=== PATIENT | male | born 1970 | race Caucasian/White ===

== ENCOUNTER 2018-10-27 18:42 | Inpatient (IN) ==
[2018-10-27] MEDS ORDERED: LACTATED RINGERS 1,000 ML IV ONE ×2 (18:51→21:59)
[2018-10-27] MEDS ORDERED: ACETAMINOPHEN 325 MG TABLET PO ONE ×3 (18:52→23:16)
--- NOTE | 2018-10-27 19:07 | Emergency Department Note ---
Fever HPI - General Chief Complaint: Fever Stated Complaint: Chills, Fever Time Seen by Provider: 10/27/18 18:59 Source: patient Mode of arrival: ambulatory Limitations: no limitations - History of Present Illness HPI Narrative: Patient states of the last 24 hours of been developing fever and chills achy all over, mild nasal congestion. Having some very mild cough but no shortness of breath. Nausea with several episodes of vomiting over the last 24 hours. He states he always has some diarrhea there is been no blood no hematemesis. Also complaining of frequency and some dysuria in the urine. Denies any CVA tenderness. He does have rheumatoid arthritis is on prednisone 5 mg daily but has not followed up with Dr. [place] for the past year as he states he has been incarcerated for the last year. Does state he has [facility] the last 6 monthsTemperatures 101.5 the pulse is 137 respiratory rate 26 blood pressure 137/95 pulse ox 96% - Related Data Home Medications Medication Instructions Recorded Confirmed Lisinopril [Zestril] 10 mg PO DAILY 09/30/17 11/12/17 Previous Rx's Medication Instructions Recorded oxybutynin chloride 5 mg tablet 5 mg PO TID PRN #60 tab 10/16/17 tamsulosin 0.4 mg capsule 0.4 mg PO QDAY #30 cap 10/16/17 meloxicam 7.5 mg tablet 7.5 mg PO BID #60 tab 10/17/17 prednisone 5 mg tablet See Rx Instructions PO QDAY #60 tab 10/24/17 sildenafil 100 mg tablet 100 mg PO ONCE #7 tab 11/12/17 folic acid 1 mg tablet 1 mg PO QDAY #30 tab 11/28/17 methotrexate sodium 2.5 mg tablet 20 mg PO QWEEK #32 tab 11/28/17 Allergies Allergy/AdvReac Type Severity Reaction Status Date / Time morphine Allergy Unknown Agitated Verified 11/12/17 08:41 Review of Systems All systems ED: reviewed and negative except as stated. Constitutional: Reports: fever, chills Eyes: Denies: eye pain ENT ED: Denies: ear pain, throat pain Cardiovascular: Denies: chest pain, palpitations Respiratory: Reports: cough (Mild). Denies: shortness of breath, wheezes, phlegm Gastrointestinal: Reports: nausea, vomiting. Denies: abdominal pain, diarrhea, constipation, hematochezia, melena Genitourinary: Reports: dysuria, frequency, urgency. Denies: hematuria, incontinence, discharge, genital lesions Musculoskeletal: Denies: back pain, joint swelling Integumentary: Denies: rash Neurological: Denies: headache, weakness Psychiatric: Denies: anxiety, depression Endocrine: Denies: fatigue, heat or cold intolerance Hematological/Lymphatic: Denies: easy bleeding Fever PMH - Past Medical History [facility] Narrative: All Active Problems (Last Reviewed 11/12/17 @ 08:42 by Kaitlin Mendez RN) Hyperuricemia (Acute) Encounter for long-term (current) use of high-risk medication (Acute) HLA B27 (HLA B27 positive) (Chronic) Inflammatory arthropathy (Acute) Right flank pain (Chronic) Left hip pain (Chronic) Hand pain (Chronic) Constipation (Chronic) Urinary hesitancy (Chronic) Intertrigo (Chronic) Erectile dysfunction (Chronic) Lumbago (Chronic) Elevated blood pressure reading (Chronic) Benign positional vertigo (Chronic) Polyarthralgia (Chronic) Osteochondroma (Chronic) Calcaneal spur (Chronic) Tendinitis (Chronic) Right ankle sprain (Chronic) Proteinuria (Chronic) High risk medication use (Chronic) Gross hematuria (Chronic) Uric acid nephrolithiasis (Chronic) Elevated uric acid in blood (Chronic) Left hand fracture (Chronic) Knee fracture, left (Chronic) Exercise-induced asthma (Chronic) Eczema (Chronic) Diverticulitis of large intestine (Chronic) Urolithiasis (Chronic) Blood in urine (Chronic) Right lower quadrant pain (Chronic) Reactive arthritis (Chronic) Inflammatory polyarthropathy (Chronic) Arthralgia (Chronic) Hypertension (Chronic) Hyperlipidemia (Chronic) Vitamin D deficiency (Chronic) Anxiety (Chronic) Depression (Chronic) Asthma (Chronic) Substance use disorder (Chronic) Gout (Chronic) Diverticulitis (Chronic) Staghorn renal calculus (Chronic) Calculus of kidney (Acute) Past Surgical History (Last Reviewed 11/12/17 @ 08:42 by Kaitlin Mendez RN) History of cholecystectomy (Chronic ~2002) History of tonsillectomy and adenoidectomy (Chronic) Family History (Last Reviewed 11/12/17 @ 08:42 by Kaitlin Mendez RN) Sister Arthritis Rheumatoid arthritis Family/Other Diabetes Father Arthritis Lung cancer metastatic to brain CVD (cardiovascular disease) Liver cancer Other Heart attack Hypertension Kidney stone Medical history: Reports: kidney stones - Social History smoking status: Never smoker Alcohol use: Reports: Heavy (Heavy in past but states he has not drank in the past 2 years) Drug use: Reports: unknown (Records indicate substance abuse in the past) Physical Exam Limitations: no limitations Head: atraumatic, normocephalic Eye: Present: normal appearance, PERRL ENT: normal exam, normal oropharynx, mucous membranes moist Neck: Present: normal inspection, full ROM Chest: Present: normal inspection, symmetric chest wall rise. Absent: tenderness Respiratory: Present: normal lung sounds bilaterally. Absent: respiratory distress, rales/crackles Cardiovascular: Present: regular rate, normal rhythm Abdominal: Present: soft, normal bowel sounds. Absent: distention, tenderness, guarding, rebound, rigidity : Present: normal inspection. Absent: testicular tenderness, urethral discharge Extremities: Present: normal inspection, full ROM. Absent: tenderness Back: Present: normal inspection, full ROM. Absent: tenderness Neurological: Present: alert, oriented X3, CN II-XII intact, normal gait. Absent: motor sensory deficit Psychiatric: Present: normal affect, normal mood. Absent: depressed, agitated, anxious Course Vital Signs Temperature 101.5 F H 10/27/18 18:42 Pulse Rate 137 H 10/27/18 18:42 Respiratory Rate 26 H 10/27/18 18:42 Blood Pressure 137/95 10/27/18 18:42 Pulse Oximetry (%) 96 10/27/18 18:42 Temperature 102.4 F H 10/27/18 21:24 Pulse Rate 125 H 10/27/18 21:24 Respiratory Rate 26 H 10/27/18 18:42 Blood Pressure 105/79 10/27/18 21:16 Pulse Oximetry (%) 95 10/27/18 21:24 Fever - MDM Narrative Medical decision making narrative: #30 White counts elevated at 20,576 segs 1 band leukocytes and 16 monocytes lactic is 1.5 sodium is 132 the potassium 4.0 the BUN is 13 creatinine 1.0 the urine dip test shows moderate leukocytes and RBCs awaiting for the microscopic blood cultures have been drawn started on Levaquin initially IVWBC is elevated at 20,500 with 76 segs 1 band and 7 lymphocytes 16 monocytes lactic acid is 1.5 can panel shows a sodium 132 potassium 4.0 glucose is 124 the BUN is 13 creatinine 1.0 test shows 134 RBCs greater than 182 WBCs culture and sensitivity has been ordered. Dr. Negrete contacted patient to be admitted urinary sepsis SIRS criteria is met - Lab Data Result diagrams: 10/27/18 19:03 10/27/18 19:03 Lab Results 10/27/18 10/27/18 10/27/18 Range/Units 19:03 19:03 19:03 WBC 20.5 H (4.5-11.0) K/mcL RBC 5.13 (4.50-5.90) M/mcL Hgb 13.6 (13.5-16.5) g/dL Hct 41.4 (41.0-55.0) % MCV 80.8 (80.0-100.0) fL MCH 26.6 (26.0-34.0) pg MCHC 32.9 (31.0-36.0) g/dL RDW 14.4 (11.5-14.5) % Plt Count 261 (140-440) K/mcL MPV 8.1 (7.4-10.4) fL Total Counted 100 Seg Neutrophils % 76 (38-78) % Band Neutrophils % 1 (0-10) % Lymphocytes % 7 L (15-49) % Monocytes % (Manual) 16 H (1-12) % Platelet Estimate Normal (NORMAL) RBC Morphology Normal (NORMAL) VBG Lactic Acid 1.5 (0.5-2.0) mmol/L Sodium 132 L (133-145) mmol/L Potassium 4.0 (3.3-5.1) mmol/L Chloride 93 L (96-108) mmol/L Carbon Dioxide 22 (22-30) mmol/L Anion Gap 17.0 H (8-16) BUN 13 (6-20) mg/dl Creatinine 1.0 (0.7-1.2) mg/dl GFR Calculation 90 Glucose 124 H (70-105) mg/dL Calcium 9.0 (8.6-10.4) mg/dl Total Bilirubin 2.0 H (0.0-1.0) mg/dL AST 12 (0-37) U/l ALT 11 (0-40) U/l Alkaline Phosphatase 93 (39-117) U/L Total Protein 8.0 (5.9-8.4) gm/dL Albumin 3.8 (3.2-5.2) gm/dL Globulin 4.2 H (2.2-3.7) gm/dL Albumin/Globulin Ratio 0.9 L (1.0-2.3) Urine Color Urine Appearance Urine pH (5.0-9.0) Ur Specific [place] (1.000-1.035) Urine Protein (NEG) mg/dL Urine Glucose (UA) (NEG) mg/dL Urine Ketones (NEG) mg/dL Urine Occult Blood (<0.03) mg/dL Urine Nitrate (NEG) Urine Bilirubin (NEG) mg/dL Urine Urobilinogen (NEG) mg/dL Ur Leukocyte Esterase (NEG) /uL Urine RBC (0-1) /hpf Urine WBC (0-4) /hpf Ur Squamous Epith Cells (0-4) /hpf Urine Bacteria (0) /hpf Urine Mucus (0) /hpf Ur Culture Indicated? 10/27/18 Range/Units 20:25 WBC (4.5-11.0) K/mcL RBC (4.50-5.90) M/mcL Hgb (13.5-16.5) g/dL Hct (41.0-55.0) % MCV (80.0-100.0) fL MCH (26.0-34.0) pg MCHC (31.0-36.0) g/dL RDW (11.5-14.5) % Plt Count (140-440) K/mcL MPV (7.4-10.4) fL Total Counted Seg Neutrophils % (38-78) % Band Neutrophils % (0-10) % Lymphocytes % (15-49) % Monocytes % (Manual) (1-12) % Platelet Estimate (NORMAL) RBC Morphology (NORMAL) VBG Lactic Acid (0.5-2.0) mmol/L Sodium (133-145) mmol/L Potassium (3.3-5.1) mmol/L Chloride (96-108) mmol/L Carbon Dioxide (22-30) mmol/L Anion Gap (8-16) BUN (6-20) mg/dl Creatinine (0.7-1.2) mg/dl GFR Calculation Glucose (70-105) mg/dL Calcium (8.6-10.4) mg/dl Total Bilirubin (0.0-1.0) mg/dL AST (0-37) U/l ALT (0-40) U/l Alkaline Phosphatase (39-117) U/L Total Protein (5.9-8.4) gm/dL Albumin (3.2-5.2) gm/dL Globulin (2.2-3.7) gm/dL Albumin/Globulin Ratio (1.0-2.3) Urine Color Anna Urine Appearance Cloudy Urine pH 5.0 (5.0-9.0) Ur Specific [place] 1.021 (1.000-1.035) Urine Protein 100 A (NEG) mg/dL Urine Glucose (UA) Negative (NEG) mg/dL Urine Ketones 5/tr A (NEG) mg/dL Urine Occult Blood >=1.0 A (<0.03) mg/dL Urine Nitrate Pos A (NEG) Urine Bilirubin Neg (NEG) mg/dL Urine Urobilinogen Neg (NEG) mg/dL Ur Leukocyte Esterase 250 A (NEG) /uL Urine RBC 134 H (0-1) /hpf Urine WBC > 182 H (0-4) /hpf Ur Squamous Epith Cells 0 (0-4) /hpf Urine Bacteria 0 (0) /hpf Urine Mucus Many A (0) /hpf Ur Culture Indicated? Yes Disposition Pt seen by [employer] [facility]/PA only: No Clinical Impression: Sepsis due to urinary tract infection Disposition: Xfer As Inpt ([facility]) Condition: Fair Referrals: Abe Britt ARNP [Primary Care Provider] -
--- NOTE | 2018-10-27 19:28 | XRay Report ---
INDICATION: Fever. Chills. TECHNIQUE: PA and lateral upright chest x-ray COMPARISON: 11/26/2017 and 07/11/2010 FINDINGS:Lungs are negative. No parenchymal infiltrate or mass. Heart size and vascularity are normal. Katarina and mediastinum are negative. No pleural fluid. No significant interval change IMPRESSION: Negative PA and lateral chest x-ray Interpreted and Authenticated by: Pedro Oropeza 10/27/18
[2018-10-27] MEDS ORDERED: ONDANSETRON 4 MG/2 ML VIAL IV ONE (19:36)
[2018-10-27 19:49] LABS: Mean Cell Volume 80.8 fL (80.0-100.0); Mean Corpuscular HGB Conc 32.9 g/dL (31.0-36.0); Platelet Count 261 K/mcL (140-440); RBC 5.13 M/mcL (4.50-5.90); Red Cell Distribution Width 14.4 % (11.5-14.5)
[2018-10-27 20:06] LABS: Band Neutrophils % 1 % (0-10); Lymphocytes % 7 % (15-49); Monocytes % (Manual) 16 % (1-12); Platelet Estimate NORMAL (NORMAL); RBC Morphology NORMAL (NORMAL); Segmented Neutrophils % 76 % (38-78)
[2018-10-27 20:10] LABS: ALT/SGPT 11 U/l (0-40); Albumin 3.8 gm/dL (3.2-5.2); Albumin/Globulin Ratio 0.9 (1.0-2.3); Alkaline Phosphatase 93 U/L (39-117); Blood Urea Nitrogen 13 mg/dl (6-20)
[2018-10-27] MEDS ORDERED: IBUPROFEN 200 MG TABLET PO ONE (20:25)
[2018-10-27] MEDS ORDERED: LEVOFLOXACIN 500 MG/100 ML BAG IV ONE (20:33)
[2018-10-27 21:19] LABS: Appearance,Urine CLOUDY; Bacteria,Urine 0 /hpf (0); Bilirubin,Urine NEG (NEG); Color,Urine AMBER; Glucose,Urine (UA) NEGATIVE (NEG); Leukocyte Esterase,Urine 250 /uL (NEG); Mucus,Urine MANY /hpf (0); Protein,Urine 100 mg/dL (NEG); Specific Gravity,Urine 1.021 (1.000-1.035); Urine Blood >=1.0 mg/dL (<0.03); Urine RBC 134 /hpf (0-1); Urine Squamous Epithelial Cell 0 /hpf (0-4); Urine WBC > 182 /hpf (0-4); Urobilinogen,Urine NEG (NEG)
[2018-10-27] MEDS ORDERED: LACTATED RINGERS 2,000 ML IV ONE (21:43)
[2018-10-27] MEDS ORDERED: methylPREDNISolone SOD SUCC 40 MG/ML VIAL IV ONE ×2 (22:04→22:22)
--- NOTE | 2018-10-27 22:12 | Internal Med History&Physical ---
Medical - H&P: HPI Patient information: Note initiated : 10/27/18 at 10:10 pm Service Date, if different from initiated Date: [] Patient: Fito Gunn 48 y/o M admitted on for Chills, Fever. Chief Complaint: [] History of present illness: Mr. Gunn is a 48 year old M with history of rheumatoid arthritis, hypertension, on chronic prednisone therapy 20 mg, presents to the emergency room today for evaluation of fever chills for 1 day. The patient's notes that he started having nausea and some vomiting since yester day, he had subjective sensation of fever and chills some runny nose. He was feeling tired week and significant fatigue. He then noticed that he has been having increased burning when he tries to pee. The patient's condition continued to decline and therefore he presented to the emergency room for further evaluation. He had some headache, some runny nose but no changes in vision no changes in h earing no difficulty in swallowing, no chest pain no shortness of breath has cough mild, had some nausea and vomiting, burning urination no diarrhea constipation or blood in stools reported, has joint pain secondary to arthritis but no new joint pains or back pain reported. No skin rashes no behavioral issues reported. The patient takes prednisone 20 mg for more than 6 months now has been incarc erated therefore was not able to follow-up with his party host. In the emergency room the patient was febrile temperature 102.4, heart rate 125 blood pressure 105/79 saturating 95% on room air, Patient's labs showed leukocytosis WBC 20.5, hemoglobin 13.6 platelets 261 lactic acid 1.5, creatinine 1.0 glucose 124. UA suggestive of urinary tract infection. Patient does have history of renal stones in the past but denies any flank pains. Patient was given antibiotics fluids appropriate cultures drawn and admitted to the hospital for further management All systems: reviewed and no additional remarkable complaints except as stated (As per HPI rest negative) Medical - H&P: PMH Medical history: Medical History (Last Reviewed 11/12/17 @ 08:42 by Kaitlin Mendez RN) Hyperuricemia (Acute) Encounter for long-term (current) use of high-risk medication (Acute) HLA B27 (HLA B27 positive) (Chronic) Spondyloarthropathy (Suspected) Inflammatory arthropathy (Acute) Right flank pain (Chronic) Left hip pain (Chronic) Hand pain (Chronic) Constipation (Chronic) Urinary hesitancy (Chronic) Intertrigo (Chronic) Erectile dysfunction (Chronic) Lumbago (Chronic) Elevated blood pressure reading (Chronic) Benign positional vertigo (Chronic) Polyarthralgia (Chronic) Osteochondroma (Chronic) Calcaneal spur (Chronic) Tendinitis (Chronic) Right ankle sprain (Chronic) Proteinuria (Chronic) High risk medication use (Chronic) Gross hematuria (Chronic) Uric acid nephrolithiasis (Chronic) Elevated uric acid in blood (Chronic) Left hand fracture (Chronic) Knee fracture, left (Chronic) Exercise-induced asthma (Chronic) Eczema (Chronic) Diverticulitis of large intestine (Chronic) Urolithiasis (Chronic) Blood in urine (Chronic) Right lower quadrant pain (Chronic) Reactive arthritis (Chronic) Inflammatory polyarthropathy (Chronic) Arthralgia (Chronic) Hypertension (Chronic) Hyperlipidemia (Chronic) Vitamin D deficiency (Chronic) Anxiety (Chronic) Depression (Chronic) Asthma (Chronic) Substance use disorder (Chronic) Gout (Chronic) Diverticulitis (Chronic) Staghorn renal calculus (Chronic) Calculus of kidney (Acute) Surgical history: Past Surgical History (Last Reviewed 11/12/17 @ 08:42 by Kaitlin Mendez RN) History of cholecystectomy (Chronic ~2002) History of tonsillectomy and adenoidectomy (Chronic) Pertinent family history: Family History (Last Reviewed 11/12/17 @ 08:42 by Kaitlin Mendez RN) Sister Arthritis Rheumatoid arthritis Family/Other Diabetes Father Arthritis Lung cancer metastatic to brain CVD (cardiovascular disease) Liver cancer Other Heart attack Hypertension Kidney stone Medical - H&P: Meds Home Medications Medication Instructions Recorded Confirmed Type Lisinopril [Zestril] 10 mg PO DAILY 09/30/17 11/12/17 History oxybutynin chloride 5 mg tablet 5 mg PO TID PRN #60 tab 10/16/17 11/12/17 Rx tamsulosin 0.4 mg capsule 0.4 mg PO QDAY #30 cap 10/16/17 11/12/17 Rx meloxicam 7.5 mg tablet 7.5 mg PO BID #60 tab 10/17/17 11/12/17 Rx prednisone 5 mg tablet See Rx Instructions PO QDAY #60 tab 03/29/18 04/17/18 Rx sildenafil 100 mg tablet 100 mg PO ONCE #7 tab 11/12/17 11/12/17 Rx folic acid 1 mg tablet 1 mg PO QDAY #30 tab 11/28/17 Rx methotrexate sodium 2.5 mg tablet 20 mg PO QWEEK #32 tab 11/28/17 Rx Allergies Allergy/AdvReac Type Severity Reaction Status Date / Time morphine Allergy Unknown Agitated Verified 11/12/17 08:41 Medical - H&P: Exam - Constitutional Vitals: Temp Pulse Resp BP Pulse Ox 102.4 F H 119 H 26 H 109/83 98 10/27/18 21:24 10/27/18 21:46 10/27/18 18:42 10/27/18 21:46 10/27/18 21:46 Exam: GENERAL: The patient is a well-developed, well-nourished in no apparent distress. Is alert and oriented x3. Obese individual VITAL SIGNS: Reviewed and as noted elsewhere. HEENT: Head is normocephalic and atraumatic. Extraocular muscles are intact. Pupils are equal, round, and reactive to light. Nares appeared normal. Mouth appears any without lesions. Mucous membranes are moist. NECK: Normal to inspection, Supple, No lymphadenopathy or thyromegaly. LUNGS: Air entry equal on both sides, no wheezing, crackles or rhonchi noted. No accessory muscles of respiration HEART: Regular tachycardic rate and rhythm normal, S1 and S2 heard, no Gallop, S3 or Rub Noted, No Gross murmur heard. ABDOMEN: Soft, nontender, and nondistended. Positive bowel sounds. No hepatosplenomegaly was noted. EXTREMITIES: No cyanosis, clubbing, rash, lesions or edema. NEUROLOGIC: Cranial nerves II through XII are grossly intact. Motor and Sensory System Grossly Intact PSYCHIATRIC: Normal affect, Normal Mood. Appropriate Behavior. SKIN: No ulceration or wounds noted, No jaundice, No rash noted. Medical - H&P: Reslt - Labs CBC & Chem 7: 10/27/18 19:03 10/27/18 19:03 Labs: Short CBC 10/27/18 Range/Units 19:03 WBC 20.5 H (4.5-11.0) K/mcL Hgb 13.6 (13.5-16.5) g/dL Hct 41.4 (41.0-55.0) % Plt Count 261 (140-440) K/mcL BMP 10/27/18 19:03 Sodium 132 L Potassium 4.0 Chloride 93 L Carbon Dioxide 22 BUN 13 Creatinine 1.0 Glucose 124 H Calcium 9.0 Liver Function 10/27/18 Range/Units 19:03 Total Bilirubin 2.0 H (0.0-1.0) mg/dL AST 12 (0-37) U/l ALT 11 (0-40) U/l Alkaline Phosphatase 93 (39-117) U/L Albumin 3.8 (3.2-5.2) gm/dL Urine 10/27/18 Range/Units 20:25 Urine Color Anna Urine Appearance Cloudy Urine pH 5.0 (5.0-9.0) Ur Specific [place] 1.021 (1.000-1.035) Urine Protein 100 A (NEG) mg/dL Urine Glucose (UA) Negative (NEG) mg/dL Medical - H&P: A/P - Narrative A/P Narrative: A/P Urinary tract infection Acute sepsis Rheumatoid arthritis Chr prednisone use Obesity HTN Plan Admit to med surg IV fluids, total 4 L planned, IV rocephin 2gms q24, Get CT abdomen and pelvis, given h/o renal stones, and severe UTI, Increase dose of steroids to 40mg for now, double usual dose, to avoid Secondary AI Hold bp medications for now DVT hep sq Full code. Social History - Social History marital status: occupational status: unemployed - Exercise physical activity: none - Tobacco smoking status: Never smoker - Alcohol alcohol intake frequency: a few times a month - Substance use substance use type: marijuana, other
[2018-10-27] MEDS ORDERED: ONDANSETRON 4 MG/2 ML VIAL IV PRN (23:00)
[2018-10-27] MEDS ORDERED: ONDANSETRON 4 MG/2 ML VIAL ONE (23:16)
[2018-10-27] MEDS: 0.9 % SODIUM CHLORIDE 10 ML SYRINGE IV SCH ×2 (23:18→23:30)
[2018-10-27] MEDS ORDERED: ZOLPIDEM 5 MG TABLET ONE (23:21)
[2018-10-27] MEDS ORDERED: cefTRIAXone 1 GM VIAL ONE (23:21)
[2018-10-27] MEDS: cefTRIAXone 2 GM in DEXTROSE 5% IN WATER 50 ML IV SCH (23:42)
[2018-10-28] MEDS: LACTATED RINGERS 1,000 ML IV SCH ×3 (04:46→18:34)
[2018-10-28] MEDS: 0.9 % SODIUM CHLORIDE 10 ML SYRINGE IV SCH ×3 (05:31→20:56)
[2018-10-28 06:16] LABS: Basophils # (Auto) 0 K/mcL (0.0-0.3); Basophils % (Auto) 0 % (0.0-2.0); Eosinophils # (Auto) 0 K/mcL (0.0-0.7); Eosinophils % (Auto) 0 % (0.0-7.0); Granulocytes % (Auto) 90.9 % (38.0-78.0); Lymphocytes # (Auto) 0.5 K/mcL (1.5-4.8); Lymphocytes % (Auto) 3.2 % (15.5-49.0); Mean Cell Volume 81.9 fL (80.0-100.0); Mean Corpuscular HGB Conc 32.9 g/dL (31.0-36.0); Monocytes % (Auto) 5.9 % (1.0-12.0); Platelet Count 232 K/mcL (140-440); RBC 4.62 M/mcL (4.50-5.90); Red Cell Distribution Width 14.2 % (11.5-14.5)
[2018-10-28 06:45] LABS: ALT/SGPT 10 U/l (0-40); Albumin 3.4 gm/dL (3.2-5.2); Albumin/Globulin Ratio 0.9 (1.0-2.3); Alkaline Phosphatase 88 U/L (39-117); Bilirubin,Direct 0.2 mg/dL (0.0-0.3); Blood Urea Nitrogen 14 mg/dl (6-20); Gamma Glutamyl Transpeptidase 40 U/L (8-61); Uric Acid 6.7 mg/dL (2.5-8.0)
[2018-10-28] MEDS: PANTOPRAZOLE 40 MG PACKET PO SCH (07:55)
[2018-10-28] MEDS ORDERED: predniSONE 20 MG TABLET PO SCH (08:00)
[2018-10-28] MEDS ORDERED: IOPAMIDOL 100 ML BOTTLE IV ONE (08:21)
--- NOTE | 2018-10-28 08:39 | Cat Scan Report ---
CLINICAL INFORMATION: History of right staghorn calculus. Possible pyelonephritis COMPARISON: Previous plain film examinations dated 11/12/2017, 10/16/2017, 09/17/2017 TECHNIQUE: Axial images were obtained through the abdomen and pelvis. Sagittally and coronally reformatted images. 90 mL contrast material injected intravenously. Oral contrast material was not given FINDINGS: A precontrast enhanced examination was not obtained. There is a large stone in the right renal pelvis. This measures 2.1 x 1.7 x 2.0 cm. There are multiple stones in lower pole infundibula and calyces. There is no significant hydronephrosis. The right kidney appears somewhat edematous and there is mild perinephric infiltration. Appearance is consistent with the supplied diagnosis of probable pyelonephritis. There is no discrete mass. No evidence for lobar nephronia. No perinephric abscess. Left kidney is negative except for a benign small exophytic cyst. No hydroureter. No bladder calculus. Lung bases are negative. No parenchymal infiltrate or mass. No pleural fluid. No pericardial fluid. Negative liver. No focal intrahepatic abnormality. Liver contour is smooth. There is no ascites. There are surgical clips in the gallbladder fossa. Common bile duct measures 7 mm. No intrahepatic bile duct dilatation. No detectable choledocholithiasis. Negative pancreas. No pancreatic mass. No peripancreatic abnormality. Negative spleen. Normal enhancement splenic and portal veins. Negative adrenal glands. Colon is negative. No detectable colonic mass. There is significant diverticulosis, advanced for age. There are diverticula in the transverse colon, descending colon, sigmoid colon. No diverticulitis. There is no appendicitis. No mechanical small bowel obstruction. No free intraperitoneal fluid. No intra-abdominal abscess. No pneumoperitoneum. No biliary or portal venous gas. Lumbar spine, sacrum, pelvis are negative IMPRESSION: 1. Staghorn type right renal calculi. No hydronephrosis. 2. Findings consistent with right pyelonephritis. No perinephric abscess or evidence for lobar nephronia. 3. Prominent diverticulosis. No diverticulitis The exam was performed using radiation dose optimization techniques including, but not limited to, automated exposure control, adjustment of the mA and/or kV according to patient size and use of iterative reconstruction technique. Interpreted and Authenticated by: Pedro Oropeza 10/28/18
[2018-10-28] MEDS: HEPARIN 5,000 UNIT/ML VIAL SQ SCH ×2 (09:04→20:56)
--- NOTE | 2018-10-28 09:41 | Internal Med Progress Note ---
Medical - PN: Subj Patient information: Note initiated : 10/28/18 at 9:39 am Service Date, if different from initiated Date: [] Patient: Fito Gunn 48 y/o M admitted on 10/27/18 for Chills, Fever. Chief Complaint: [] Interval history: Mr. Gunn is a 48 year old M with history of rheumatoid arthritis, hypertension, on chronic prednisone therapy 20 mg, presents to the emergency room today for evaluation of fever chills for 1 day. The patient's notes that he started having nausea and some vomiting since yesterday, he had subjective sensation of fever and chills some runny nose. He was feeling tired week and significant fatigue. He then noticed that he has been having increased burning when he tries to pee. The patient's condition continued to decline and therefore he presented to the emergency room for f urther evaluation. He had some headache, some runny nose but no changes in vision no changes in hearing no difficulty in swallowing, no chest pain no shortness of breath has cough mild, had some nausea and vomiting, burning urination no diarrhea constipation or blood in stools reported, has joint pain secondary to arthritis but no new joint pains or back pain reported. No skin rashes no behavioral issues reported. The patient takes prednisone 20 mg for more than 6 months now has been incarcera randall therefore was not able to follow-up with his photo graphics librarian. In the emergency room the patient was febrile temperature 102.4, heart rate 125 blood pressure 105/79 saturating 95% on room air, Patient's labs showed leukocytosis WBC 20.5, hemoglobin 13.6 platelets 261 lactic acid 1.5, creatinine 1.0 glucose 124. UA suggestive of urinary tract infection. 10/28 Patient seen and examined, no acute overnight events, slept well. Still febrile overnight better this morning. Hemodynamically stable, WBC trending down labs otherwise stable. CT chest abdomen pelvis done shows right-sided pyelonephritis, with a right- sided staghorn calculus no hydronephrosis. I reviewed the case with Dr. Ferris who will be seeing this patient in the clinic Microbiology pending Pertinent ROS: Denies headache, dizziness Denies chest pain, palpitations Denies cough or shortness of breath Denies abdominal pain, nausea or vomiting. - Constitutional Vitals: Vital Signs Temp Pulse Resp BP Pulse Ox 98.1 F 85 18 95/61 97 10/28/18 07:37 10/28/18 07:37 10/28/18 07:37 10/28/18 07:37 10/28/18 07:37 Period Temp Pulse Resp BP Sys/Caruso Pulse Ox Last 24 Hr 97.6 F-103.1 F 76-137 18-26 95-169/61-99 92-98 Intake and Output 10/27/18 10/28/18 10/28/18 21:59 05:59 13:59 Intake Total 1100 2725 360 Output Total 450 Balance 1100 2275 360 Weight 280 lb 295 lb Intake & Output: Intake & Output 10/27/18 10/28/18 10/28/18 21:59 05:59 13:59 Intake Total 1100 2725 360 Output Total 450 Balance 1100 2275 360 Weight 280 lb 295 lb Intake: IV 1100 2525 Lactated Ringers 1,000 ml @ 1000 2525 Wide Open IV BOLUS ONE Rx#: [id number] LEVAQUIN 500 mg In 100 ml @ 100 100 mls/hr IV ONCE ONE Rx#: [id number] Oral 200 360 Output: Void Amount 450 Other: Meal Breakfast Percent of Meal Consumed 100% Feeding Ability Independent Urine Appearance Clear Urine Color Dark Yellow Urine Odor Strong Exam: Constitutional; Afebrile, cooperative, alert, not in distress. Eyes- No icterus, , No periorbital swelling Ears- Ext ear normal, hearing normal to conversation. Neck- Midline trachea, supple Respiratory system: Air Entry equal on both sides, No crackles or wheezing, no rhonchi. CVS- Rate rhythm regular, S1,S2 heard, no gallop, no rub. Abdomen- Soft nontender abdomen, no organomegaly, no tenderness, no guarding or rigidity, SENIOR DATA SCIENTIST- AOOx3, moving all extremities, no gross focal deficit noted. Medical - PN: Obj Da - Labs CBC & Chem 7: 10/28/18 04:10 10/28/18 04:10 Labs: Abnormal Lab Results 10/28/18 10/28/18 10/27/18 04:10 04:10 20:25 WBC 16.8 H Hgb 12.4 L Hct 37.9 L Gran % 90.9 H Lymph % (Auto) 3.2 L Gran # 15.3 H Lymph # (Auto) 0.5 L [place] # (Auto) 1.0 H Lymphocytes % Monocytes % (Manual) Sodium Chloride Anion Gap Glucose 173 H Total Bilirubin 1.5 H Globulin 3.8 H Albumin/Globulin Ratio 0.9 L Urine Protein 100 A Urine Ketones 5/tr A Urine Occult Blood >=1.0 A Urine Nitrate Pos A Ur Leukocyte Esterase 250 A Urine RBC 134 H Urine WBC > 182 H Urine Mucus Many A 10/27/18 10/27/18 19:03 19:03 WBC 20.5 H Hgb Hct Gran % Lymph % (Auto) Gran # Lymph # (Auto) [place] # (Auto) Lymphocytes % 7 L Monocytes % (Manual) 16 H Sodium 132 L Chloride 93 L Anion Gap 17.0 H Glucose 124 H Total Bilirubin 2.0 H Globulin 4.2 H Albumin/Globulin Ratio 0.9 L Urine Protein Urine Ketones Urine Occult Blood Urine Nitrate Ur Leukocyte Esterase Urine RBC Urine WBC Urine Mucus Meds: Medications Acetaminophen (Tylenol) 650 mg PO Q6HP PRN PRN Reason: PAIN/FEVER > 101 Heparin Sodium (Porcine) (Heparin) 5,000 unit SQ Q12 [facility] Last Admin: 10/28/18 09:04 Dose: 5,000 unit Documented by: Ceftriaxone Sodium 2 gm/ (Dextrose) 50 mls @ 100 mls/hr IV Q24H [facility] Last Admin: 10/27/18 23:42 Dose: Not Given Documented by: Lactated Ringer's (Lactated Ringers) 1,000 mls @ 75 mls/hr IV .[id number] [facility] Last Admin: 10/28/18 04:46 Dose: 75 mls/hr Documented by: Ibuprofen (Motrin) 600 mg PO QIDP PRN PRN Reason: PAIN/FEVER > 101 Ondansetron HCl (Zofran) 4 mg IV Q6HP PRN PRN Reason: Nausea And Vomiting Pantoprazole Sodium (Protonix) 40 mg PO [facility] Last Admin: 10/28/18 07:55 Dose: 40 mg Documented by: Prednisone (Prednisone) 40 mg PO [facility] Last Admin: 10/28/18 07:55 Dose: 40 mg Documented by: Sodium Chloride (Saline Flush) 10 ml IV Q8 [facility] Last Admin: 10/28/18 05:31 Dose: 10 ml Documented by: Zolpidem Tartrate (Ambien) 5 mg PO HSP PRN PRN Reason: Insomnia Medical - PN: A/P - Time Spent With Patient Total time spent is greater than 50% in coordination of care (as documented) at patient's floor/unit and/or counseling patient: - Narrative A/P Narrative: A/P Acute pylenephritis Right Side stag horn calculus Acute sepsis Rheumatoid arthritis Chr prednisone use Obesity HTN Plan continue IVF IV antibiotics, await microbiology report Outpatient urology follow up. cut back on prednisone to home dose from tomorrow. DVT hep sq Full code. Medical - PN: Qual - VTE Deep Vein Thrombosis/Pulmonary Embolism Present on Admission: No
[2018-10-28] MEDS: cefTRIAXone 2 GM in DEXTROSE 5% IN WATER 50 ML IV SCH (13:44)
[2018-10-28] MEDS: ZOLPIDEM 5 MG TABLET PO PRN (20:56)
[2018-10-28] MEDS: IBUPROFEN 600 MG TABLET PO PRN (20:56)
[2018-10-29] MEDS: LACTATED RINGERS 1,000 ML IV SCH ×3 (00:34→17:14)
[2018-10-29] MEDS: 0.9 % SODIUM CHLORIDE 10 ML SYRINGE IV SCH ×3 (05:03→21:48)
[2018-10-29 05:38] LABS: Basophils # (Auto) 0 K/mcL (0.0-0.3); Basophils % (Auto) 0 % (0.0-2.0); Eosinophils # (Auto) 0 K/mcL (0.0-0.7); Eosinophils % (Auto) 0 % (0.0-7.0); Granulocytes % (Auto) 82.6 % (38.0-78.0); Lymphocytes # (Auto) 1.1 K/mcL (1.5-4.8); Lymphocytes % (Auto) 7.1 % (15.5-49.0); Mean Cell Volume 81.6 fL (80.0-100.0); Mean Corpuscular HGB Conc 33.2 g/dL (31.0-36.0); Monocytes # (Auto) 1.5 K/mcL (0.1-0.9); Monocytes % (Auto) 10.3 % (1.0-12.0); Platelet Count 231 K/mcL (140-440); RBC 4.14 M/mcL (4.50-5.90); Red Cell Distribution Width 14.5 % (11.5-14.5)
[2018-10-29 06:01] LABS: ALT/SGPT 13 U/l (0-40); Albumin 3.1 gm/dL (3.2-5.2); Albumin/Globulin Ratio 0.9 (1.0-2.3); Alkaline Phosphatase 85 U/L (39-117); Bilirubin,Direct < 0.2 mg/dL (0.0-0.3); Blood Urea Nitrogen 18 mg/dl (6-20); Gamma Glutamyl Transpeptidase 35 U/L (8-61); Uric Acid 6.3 mg/dL (2.5-8.0)
[2018-10-29] MEDS: predniSONE 20 MG TABLET PO SCH (08:38)
[2018-10-29] MEDS: PANTOPRAZOLE 40 MG PACKET PO SCH (08:38)
--- NOTE | 2018-10-29 10:37 | Internal Med Progress Note ---
Medical - PN: Subj Patient information: Note initiated : 10/29/18 at 10:36 am Service Date, if different from initiated Date: [] Patient: Fito Gunn 48 y/o M admitted on 10/27/18 for Chills, Fever. Chief Complaint: [] Interval history: Mr. Gunn is a 48 year old M with history of rheumatoid arthritis, hypertension, on chronic prednisone therapy 20 mg, presents to the emergency room today for evaluation of fever chills for 1 day. The patient's notes that he started having nausea and some vomiting since yesterday, he had subjective sensation of fever and chills some runny nose. He was feeling tired week and significant fatigue. He then noticed that he has been having increased burning when he tries to pee. The patient's condition continued to decline and therefore he presented to the emergency room for further evaluation. He had some headache, some runny nose but no changes in vision no changes in hea ring no difficulty in swallowing, no chest pain no shortness of breath has cough mild, had some nausea and vomiting, burning urination no diarrhea constipation or blood in stools reported, has joint pain secondary to arthritis but no new joint pains or back pain reported. No skin rashes no behavioral issues reported. 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 In the emergency room the patient was febrile temperature 102.4, heart rate 125 blood pressure 105/79 saturating 95% on room air, Patient's labs showed leukocytosis WBC 20.5, hemoglobin 13.6 platelets 261 lactic acid 1.5, creatinine 1.0 glucose 124. UA suggestive of urinary tract infection. 10/28 Patient seen and examined, no acute overnight events, slept well. Still febrile overnight better this morning. Hemodynamically stable, WBC trending down labs otherwise stable. CT chest abdomen pelvis done shows right-sided pyelonephritis, with a right- sided staghorn calculus no hydronephrosis. I reviewed the case with Dr. Ferris who will be seeing this patient in the clinic Microbiology pending 10/29 Patient seen and examined, no acute overnight issues, tolerating po diet well wbc trending down, blood and urien culture gram neg bacillus, ecoli in blood sensitivity pending clinically improving await sensitivity report, befroe discharge, likely tomorrow. Pertinent ROS: Denies headache, dizziness Denies chest pain, palpitations Denies cough or shortness of breath Denies abdominal pain, nausea or vomiting. - Constitutional Vitals: Vital Signs Temp Pulse Resp BP Pulse Ox 98.1 F 76 20 133/85 96 10/29/18 08:00 10/29/18 08:00 10/29/18 08:00 10/29/18 08:00 10/29/18 08:00 Period Temp Pulse Resp BP Sys/Caruso Pulse Ox Last 24 Hr 97.6 F-99.2 F 76-98 16-24 108-143/67-85 95-96 Intake and Output 10/28/18 10/29/18 10/29/18 21:59 05:59 13:59 Intake Total 2400 350 Output Total 800 Balance 1600 350 Weight 296 lb Intake & Output: Intake & Output 10/28/18 10/29/18 10/29/18 21:59 05:59 13:59 Intake Total 2400 350 Output Total 800 Balance 1600 350 Weight 296 lb Intake: IV 2000 Lactated Ringers 1,000 ml @ 75 1000 mls/hr IV .[id number] [facility] Rx#: [id number] Oral 400 350 Output: Void Amount 800 Other: Meal [place] Percent of Meal Consumed 100% Feeding Ability Independent Urine Appearance Clear Urine Odor Normal # Voids 1 # Bowel Movements 1 Exam: Constitutional; Afebrile, cooperative, alert, not in distress. Eyes- No icterus, , No periorbital swelling Ears- Ext ear normal, hearing normal to conversation. Neck- Midline trachea, supple Respiratory system: Air Entry equal on both sides, No crackles or wheezing, no rhonchi. CVS- Rate rhythm regular, S1,S2 heard, no gallop, no rub. Abdomen- Soft nontender abdomen, no organomegaly, no tenderness, no guarding or rigidity, FIRE TECHNICIAN- AOOx3, moving all extremities, no gross focal deficit noted. Medical - PN: Obj Da - Labs CBC & Chem 7: 10/29/18 04:05 10/29/18 04:05 Labs: Abnormal Lab Results 10/29/18 10/29/18 10/28/18 04:05 04:05 04:10 WBC 15.1 H RBC 4.14 L Hgb 11.2 L Hct 33.8 L Gran % 82.6 H Lymph % (Auto) 7.1 L Gran # 12.4 H Lymph # (Auto) 1.1 L [place] # (Auto) 1.5 H Lymphocytes % Monocytes % (Manual) Sodium Chloride Anion Gap Glucose 139 H 173 H Total Bilirubin 1.5 H Albumin 3.1 L Globulin 3.8 H Albumin/Globulin Ratio 0.9 L 0.9 L Triglycerides 220 H Urine Protein Urine Ketones Urine Occult Blood Urine Nitrate Ur Leukocyte Esterase Urine RBC Urine WBC Urine Mucus 10/28/18 10/27/18 10/27/18 04:10 20:25 19:03 WBC 16.8 H RBC Hgb 12.4 L Hct 37.9 L Gran % 90.9 H Lymph % (Auto) 3.2 L Gran # 15.3 H Lymph # (Auto) 0.5 L [place] # (Auto) 1.0 H Lymphocytes % Monocytes % (Manual) Sodium 132 L Chloride 93 L Anion Gap 17.0 H Glucose 124 H Total Bilirubin 2.0 H Albumin Globulin 4.2 H Albumin/Globulin Ratio 0.9 L Triglycerides Urine Protein 100 A Urine Ketones 5/tr A Urine Occult Blood >=1.0 A Urine Nitrate Pos A Ur Leukocyte Esterase 250 A Urine RBC 134 H Urine WBC > 182 H Urine Mucus Many A 10/27/18 19:03 WBC 20.5 H RBC Hgb Hct Gran % Lymph % (Auto) Gran # Lymph # (Auto) [place] # (Auto) Lymphocytes % 7 L Monocytes % (Manual) 16 H Sodium Chloride Anion Gap Glucose Total Bilirubin Albumin Globulin Albumin/Globulin Ratio Triglycerides Urine Protein Urine Ketones Urine Occult Blood Urine Nitrate Ur Leukocyte Esterase Urine RBC Urine WBC Urine Mucus Meds: Medications Acetaminophen (Tylenol) 650 mg PO Q6HP PRN PRN Reason: PAIN/FEVER > 101 Heparin Sodium (Porcine) (Heparin) 5,000 unit SQ Q12 [facility] Last Admin: 10/28/18 20:56 Dose: 5,000 unit Documented by: Ceftriaxone Sodium 2 gm/ (Dextrose) 50 mls @ 100 mls/hr IV Q24H [facility] Last Admin: 10/28/18 13:44 Dose: 100 mls/hr Documented by: Lactated Ringer's (Lactated Ringers) 1,000 mls @ 75 mls/hr IV .[id number] [facility] Last Admin: 10/29/18 00:34 Dose: Not Given Documented by: Ibuprofen (Motrin) 600 mg PO QIDP PRN PRN Reason: PAIN/FEVER > 101 Last Admin: 10/28/18 20:56 Dose: 600 mg Documented by: Ondansetron HCl (Zofran) 4 mg IV Q6HP PRN PRN Reason: Nausea And Vomiting [facility] Last Admin: 10/29/18 08:38 Dose: 40 mg Documented by: Prednisone (Prednisone) 20 mg PO [facility] Last Admin: 10/29/18 08:38 Dose: 20 mg Documented by: Sodium Chloride (Saline Flush) 10 ml IV Q8 [facility] Last Admin: 10/29/18 05:03 Dose: Not Given Documented by: Zolpidem Tartrate (Ambien) 5 mg PO HSP PRN PRN Reason: Insomnia Last Admin: 10/28/18 20:56 Dose: 5 mg Documented by: Medical - PN: A/P - Time Spent With Patient Total time spent is greater than 50% in coordination of care (as documented) at patient's floor/unit and/or counseling patient: - Narrative A/P Narrative: A/P Acute pylenephritis Right Side stag horn calculus Acute sepsis Rheumatoid arthritis Chr prednisone use Obesity HTN Plan continue IVF IV antibiotics, await microbiology report , ecoli in blood sensitivity pending. Outpatient urology follow up. cut back on prednisone to home dose DVT hep sq Full code. Medical - PN: Qual - VTE Deep Vein Thrombosis/Pulmonary Embolism Present on Admission: No
[2018-10-29] MEDS: HEPARIN 5,000 UNIT/ML VIAL SQ SCH ×2 (11:25→21:47)
[2018-10-29] MEDS: ACETAMINOPHEN 325 MG TABLET PO PRN ×2 (11:30→21:47)
[2018-10-29] MEDS: IBUPROFEN 600 MG TABLET PO PRN (17:27)
[2018-10-29] MEDS: ZOLPIDEM 5 MG TABLET PO PRN (21:47)
[2018-10-30] MEDS: LACTATED RINGERS 1,000 ML IV SCH (01:00)
[2018-10-30] MEDS: IBUPROFEN 600 MG TABLET PO PRN (04:32)
[2018-10-30] MEDS: 0.9 % SODIUM CHLORIDE 10 ML SYRINGE IV SCH (05:22)
[2018-10-30 05:42] LABS: Basophils # (Auto) 0 K/mcL (0.0-0.3); Basophils % (Auto) 0.1 % (0.0-2.0); Eosinophils # (Auto) 0 K/mcL (0.0-0.7); Eosinophils % (Auto) 0.3 % (0.0-7.0); Granulocytes % (Auto) 72.7 % (38.0-78.0); Lymphocytes # (Auto) 0.8 K/mcL (1.5-4.8); Lymphocytes % (Auto) 10.8 % (15.5-49.0); Mean Corpuscular HGB Conc 32.7 g/dL (31.0-36.0); Monocytes # (Auto) 1.2 K/mcL (0.1-0.9); Monocytes % (Auto) 16.1 % (1.0-12.0); Platelet Count 231 K/mcL (140-440); RBC 4.33 M/mcL (4.50-5.90); Red Cell Distribution Width 14.5 % (11.5-14.5)
[2018-10-30 05:57] LABS: ALT/SGPT 23 U/l (0-40); Albumin 3.2 gm/dL (3.2-5.2); Alkaline Phosphatase 77 U/L (39-117); Bilirubin,Direct < 0.2 mg/dL (0.0-0.3); Blood Urea Nitrogen 16 mg/dl (6-20); Gamma Glutamyl Transpeptidase 44 U/L (8-61); Uric Acid 6.6 mg/dL (2.5-8.0)
[2018-10-30] MEDS: PANTOPRAZOLE 40 MG PACKET PO SCH (07:37)
[2018-10-30] MEDS: ACETAMINOPHEN 325 MG TABLET PO PRN (07:46)
[2018-10-30] MEDS: cefTRIAXone 2 GM in DEXTROSE 5% IN WATER 50 ML IV SCH (08:38)
[2018-10-30] MEDS: predniSONE 20 MG TABLET PO SCH (08:39)
[2018-10-30] MEDS: HEPARIN 5,000 UNIT/ML VIAL SQ SCH (08:39)
--- NOTE | 2018-10-30 10:01 | Discharge Summary ---
Medical - DS: Prov Patient information: Note initiated : 10/30/18 at 9:58 am Service Date, if different from initiated Date: [] Patient: Fito Gunn 48 y/o M admitted on 10/27/18 for Chills, Fever. Chief Complaint: [] Date of admission: 10/27/18 22:54 Discharge date: 10/30/18 Primary care physician: TALIA Mcleod Consults: 10/27/18 Consult to Physician [CONS] Stat Comment: Consulting Provider: Dalia Negrete Reason For Exam: Physician to Consult Discharging clinician: Dalia Negrete Medical - DS: Meds - Discharge Medications Prescriptions: Levofloxacin [Levaquin] 750 mg PO DAILY #10 tab Lisinopril [Zestril] 10 mg PO DAILY #30 tab predniSONE [Prednisone] 20 mg PO QAC #30 tab Active and Home Medications: Home Medications Lisinopril [Zestril] 10 mg PO DAILY 09/30/17 [History Confirmed 10/28/18 Last Taken 10/26/18 09:00] Allopurinol [Zyloprim] 100 mg PO DAILY 10/27/18 [History Confirmed 10/28/18 Last Taken 10/26/18 09:00] predniSONE [Prednisone] 20 mg PO QDAY 10/27/18 [History Confirmed 10/28/18 Last Taken 10/25/18 09:00] Ibuprofen [Motrin Ib] 400 - 600 mg PO QIDP PRN 10/28/18 [History Confirmed 10/28/18 Last Taken 10/28/18] Medical - DS: Hosp Hospital course: Mr. Gunn is a 48 year old M with history of rheumatoid arthritis, hypertension, on chronic prednisone therapy 20 mg, presents to the emergency room today for evaluation of fever chills for 1 day. The patient's notes that he started having nausea and some vomiting since yesterday, he had subjective sensation of fever and chills some runny nose. He was feeling tired week and significant fatigue. He then noticed that he has been having increased burning when he tries to pee. The patient's condition continued to decline and therefore he presented to the emergency room for further evaluation. He had some headache, some runny nose but no changes in vision no changes in hearing no difficulty in swallowing, no chest pain no shortness of breath has cough mild, had some nausea and vomiting, burning urination no diarrhea constipation or blood in stools reported, has joint pain secondary to arthritis but no new joint pains or back pain reported. No skin rashes no behavioral issues reported. The patient takes prednisone 20 mg for more than 6 months now has been incarcerated therefore was not able to follow-up with his certified recreational therapist. In the emergency room the patient was febrile temperature 102.4, heart rate 125 blood pressure 105/79 saturating 95% on room air, Patient's labs showed leukocytosis WBC 20.5, hemoglobin 13.6 platelets 261 lactic acid 1.5, creatinine 1.0 glucose 124. UA suggestive of urinary tract infection. 10/28 Patient seen and examined, no acute overnight events, slept well. Still febrile overnight better this morning. Hemodynamically stable, WBC trending down labs otherwise stable. CT chest abdomen pelvis done shows right-sided pyelonephritis, with a right- sided staghorn calculus no hydronephrosis. I reviewed the case with Dr. Ferris who will be seeing this patient in the clinic Microbiology pending 10/29 Patient seen and examined, no acute overnight issues, tolerating po diet well wbc trending down, blood and urien culture gram neg bacillus, ecoli in blood sensitivity pending clinically improving await sensitivity report, befroe discharge, likely tomorrow. 10/30 patient seen examined, no acute issues, tolerating po diet well. Urine and blood culture is growing Ecoli, sensitive to levofloxacin will discharge with po levofloxacin for another 10 days to complete a 14 day course Longer course of abx selected as the patient has staghorn calculus patient to be followed by by Dr Ferris for his calculus Follow up with Dr Beck for rheumatoid arthritis. I am writing a scrip for prednisone and lisinopril for 30 days till he can get to see his regular providers. Discharge diagnosis: Pyelonephritis, Staghon calculus, Ecoli bactermia - Time Spent with Patient Total time spent providing and/or coordinating discharge services: Greater than 30 minutes Medical - DS: Exam - Constitutional Vitals: Vital Signs Temp Pulse Resp BP Pulse Ox 10/30/18 08:00 97.7 F 90 18 102/59 96 10/30/18 04:18 98.5 F 82 22 147/91 96 10/29/18 23:07 98.5 F 81 20 129/79 95 10/29/18 20:13 98.9 F 89 22 124/79 95 10/29/18 16:00 97.9 F 78 20 147/87 97 10/29/18 11:30 99.8 F H 10/29/18 11:28 99.8 F H 97 H 20 147/98 96 Intake and Output 10/29/18 10/30/18 10/30/18 21:59 05:59 13:59 Intake Total 290 1390 360 Output Total 400 Balance 290 990 360 Intake: IV 50 1000 Lactated Ringers 1,000 ml @ 75 1000 mls/hr IV .[id number] [facility] Rx#: [id number] Rocephin 2 gm In Dextrose 5% in 50 Water 50 ml @ 100 mls/hr IV Q24H [facility] Rx#:[id number] Oral 240 390 360 Output: Void Amount 400 Other: Meal Lunch [place] Breakfast Percent of Meal Consumed 100% 100% 100% Feeding Ability Independent Assist with Tray Set Up Urine Appearance Clear Urine Color Dark Yellow Straw Urine Odor Normal Normal Stool Size Moderate Stool Consistency Soft # Voids 1 # Bowel Movements 1 Weight 296 lb Additional comments: Constitutional; Afebrile, cooperative, alert, not in distress. Eyes- No icterus, , No periorbital swelling Ears- Ext ear normal, hearing normal to conversation. Neck- Midline trachea, supple Respiratory system: Air Entry equal on both sides, No crackles or wheezing, no rhonchi. CVS- Rate rhythm regular, S1,S2 heard, no gallop, no rub. Abdomen- Soft nontender abdomen, no organomegaly, no tenderness, no guarding or rigidity, CANOE INSPECTOR- AOOx3, moving all extremities, no gross focal deficit noted. Medical - DS: Data Labs on day of discharge: Labs from last 24 hours 10/30/18 10/30/18 04:15 04:15 WBC 7.3 RBC 4.33 L Hgb 11.6 L Hct 35.5 L MCV 82.0 MCH 26.8 MCHC 32.7 RDW 14.5 Plt Count 231 MPV 7.9 Gran % 72.7 Lymph % (Auto) 10.8 L [place] % (Auto) 16.1 H Eos % (Auto) 0.3 Baso % (Auto) 0.1 Gran # 5.3 Lymph # (Auto) 0.8 L [place] # (Auto) 1.2 H Eos # (Auto) 0 Baso # (Auto) 0 Sodium 142 Potassium 3.9 Chloride 104 Carbon Dioxide 27 Anion Gap 11.0 BUN 16 Creatinine 1.0 GFR Calculation 90 Glucose 109 H Uric Acid 6.6 Calcium 8.7 Phosphorus 4.0 Magnesium 1.7 Total Bilirubin 0.3 Direct Bilirubin < 0.2 GGT 44 AST 17 ALT 23 Alkaline Phosphatase 77 Lactate Dehydrogenase 144 Total Protein 6.5 Albumin 3.2 Globulin 3.3 Albumin/Globulin Ratio 1.0 Triglycerides 260 H Preliminary micro results at discharge 10/27/18 20:21 Blood Culture - Preliminary Blood 10/27/18 20:12 Blood Culture - Preliminary Blood Gram negative bacillus Medical - DS: A/P - Patient/Caregiver Discharge Instructions Activity: as per physical therapy Diet: Regular Diet Additional Instructions: take antibiotics till gone, levofloxacin 750mg once daily for 10 days. Please follow up with Dr Ferris in 2- 4 weeks Follow up with PCP in 1 week Follow up with Dr Beck in 2-3 weeks for rheumatoid arthritis. If you develop worsening flank pain, fever, chills or any other acute concerning symptom please go to the ER. - Follow up Plan Follow up with: Abe Britt ARNP [Primary Care Provider] - Disposition: Home, Self-Care Prognosis: Fair Rehab Potential: Fair I certify that the patient requires SNF services: No Overall status at discharge: patient is back to baseline Medical - DS: Qual - VTE Deep Vein Thrombosis/Pulmonary Embolism Present on Admission: No
== END 2018-10-30 12:42 | disposition home or self-care (01) | DRG 872 ==
LOC: ED 18:42 → MEDSUR 22:54
PROVIDERS: ADMIT Internal Medicine; ATTEND Internal Medicine

== ENCOUNTER 2018-11-25 07:12 | Inpatient (IN) ==
[2018-11-25] MEDS ORDERED: 0.9 % SODIUM CHLORIDE 1,000 ML IV ONE ×3 (07:15→07:51)
[2018-11-25] MEDS ORDERED: PIPERACILLIN SODIUM/TAZOBACTAM 3.375 GM in DEXTROSE 5% IN WATER 50 ML IV ONE (07:33)
--- NOTE | 2018-11-25 07:42 | Emergency Department Note ---
Abdominal Pain HPI - General Chief Complaint: Abdominal Pain Stated Complaint: lower abd pain Time Seen by Provider: 11/25/18 07:19 Source: patient Mode of arrival: ambulatory Limitations: no limitations - History of Present Illness HPI Narrative: 48-year-old male comes in for 1 day history of fever belly pain. Notes some nausea. He was recently admitted from 10/27 to 10/30/2018 for sepsis from a struvite stone. He was supposed to have follow-up with Dr. Ferris tomorrow, after completing a course of antibiotics. However, he has completed his course of antibiotics but developed high fever so came in. - Related Data Home Medications Medication Instructions Recorded Confirmed Ibuprofen [Motrin Ib] 400 - 600 mg PO QIDP PRN 10/28/18 11/12/18 Previous Rx's Medication Instructions Recorded Lisinopril [Zestril] 10 mg PO DAILY #30 tab 10/30/18 allopurinol 100 mg tablet See Rx Instructions PO QDAY #90 tab 11/12/18 prednisone 10 mg tablet See Rx Instructions PO .COMPLEX 11/12/18 #90 tab Allergies Allergy/AdvReac Type Severity Reaction Status Date / Time morphine AdvReac Mild Agitated Verified 11/25/18 07:14 Review of Systems All systems ED: reviewed and negative except as stated. Abdominal Pain PMH - Past Medical History Attestation: Yes: The following information was validated with the patient. [facility] Narrative: Family History (Last Reviewed 11/12/18 @ 13:59 by Susan Britt RN) Sister Arthritis Rheumatoid arthritis Family/Other Diabetes Father Arthritis Lung cancer metastatic to brain CVD (cardiovascular disease) Liver cancer Other Heart attack Hypertension Kidney stone Past Surgical History (Last Reviewed 11/12/18 @ 13:59 by Susan Britt RN) History of cholecystectomy (Chronic ~2002) History of tonsillectomy and adenoidectomy (Chronic) Medical History (Last Reviewed 11/12/18 @ 13:59 by Susan Britt RN) long-term current use of systemic steroids (Acute) Hyperuricemia (Acute) Encounter for long-term (current) use of high-risk medication (Acute) HLA B27 (HLA B27 positive) (Chronic) Spondyloarthropathy (Suspected) Inflammatory arthropathy (Acute) Right flank pain (Chronic) Left hip pain (Chronic) Hand pain (Chronic) Constipation (Chronic) Urinary hesitancy (Chronic) Intertrigo (Chronic) Erectile dysfunction (Chronic) Lumbago (Chronic) Elevated blood pressure reading (Chronic) Benign positional vertigo (Chronic) Polyarthralgia (Acute) Osteochondroma (Chronic) Calcaneal spur (Chronic) Tendinitis (Chronic) Right ankle sprain (Chronic) Proteinuria (Chronic) High risk medication use (Chronic) Gross hematuria (Chronic) Uric acid nephrolithiasis (Chronic) Elevated uric acid in blood (Chronic) Left hand fracture (Chronic) Knee fracture, left (Chronic) Exercise-induced asthma (Chronic) Eczema (Chronic) Diverticulitis of large intestine (Chronic) Urolithiasis (Chronic) Blood in urine (Chronic) Right lower quadrant pain (Chronic) Reactive arthritis (Chronic) Inflammatory polyarthropathy (Chronic) Arthralgia (Chronic) Hypertension (Chronic) Hyperlipidemia (Chronic) Vitamin D deficiency (Chronic) Anxiety (Chronic) Depression (Chronic) Asthma (Chronic) Substance use disorder (Chronic) Gout (Chronic) Diverticulitis (Chronic) Staghorn renal calculus (Chronic) Calculus of kidney (Acute) Medical history: Reports: kidney stones - Social History Smoking status: Never smoker Alcohol use: Reports: Heavy (Heavy in past but states he has not drank in the past 2 years) Drug use: Reports: unknown (Records indicate substance abuse in the past) Physical Exam Overweight male no acute distress resting. Normocephalic atraumatic. Co njunctive are clear sclerae white and icteric. No nasal discharge or congestion. Oropharynx pink and moist. Posterior pharynx clear. Neck is supple without lymphadenopathy or thyromegaly. Heart is regular rate and rhythm no murmur appreciated. Lungs are clear to auscultation bilaterally without wheezes rales rhonchi or respiratory distress. Abdomen soft nontender nondistended except for all quadrants which are mildly tender. No pedal edema. +2 radial pulse. Alert oriented Limitations: no limitations Course Vital Signs Temperature 98.2 F 11/25/18 07:12 Pulse Rate 137 H 11/25/18 07:12 Respiratory Rate 26 H 11/25/18 07:12 Blood Pressure 128/80 11/25/18 07:12 Pulse Oximetry (%) 96 11/25/18 07:12 Temperature 100.7 F H 11/25/18 08:20 Pulse Rate 122 H 11/25/18 08:18 Respiratory Rate 29 H 11/25/18 08:01 Blood Pressure 107/80 11/25/18 08:18 Pulse Oximetry (%) 95 11/25/18 08:18 Abdominal Pain - Lab Data Lab results reviewed: Yes I reviewed the patient's lab results. Result diagrams: 11/25/18 07:25 11/25/18 07:25 Lab Results 11/25/18 11/25/18 11/25/18 Range/Units 07:25 07:25 07:25 WBC 17.4 H (4.5-11.0) K/mcL RBC 4.96 (4.50-5.90) M/mcL Hgb 13.4 L (13.5-16.5) g/dL Hct 40.7 L (41.0-55.0) % MCV 82.0 (80.0-100.0) fL MCH 26.9 (26.0-34.0) pg MCHC 32.8 (31.0-36.0) g/dL RDW 14.9 H (11.5-14.5) % Plt Count 245 (140-440) K/mcL MPV 8.0 (7.4-10.4) fL Band Neutrophils % Not Reportable VBG Lactic Acid 2.1 H (0.5-2.0) mmol/L Sodium 135 (133-145) mmol/L Potassium 4.0 (3.3-5.1) mmol/L Chloride 100 (96-108) mmol/L Carbon Dioxide 21 L (22-30) mmol/L Anion Gap 14.0 (8-16) BUN 17 (6-20) mg/dl Creatinine 0.9 (0.7-1.2) mg/dl GFR Calculation 102 Glucose 129 H (70-105) mg/dL Calcium 9.0 (8.6-10.4) mg/dl Total Bilirubin 0.5 (0.0-1.0) mg/dL AST 13 (0-37) U/l ALT 18 (0-40) U/l Alkaline Phosphatase 77 (39-117) U/L Total Protein 7.3 (5.9-8.4) gm/dL Albumin 3.9 (3.2-5.2) gm/dL Globulin 3.4 (2.2-3.7) gm/dL Albumin/Globulin Ratio 1.1 (1.0-2.3) Disposition Pt seen by OPERATING TABLE ASSEMBLER/PA only: No Clinical Impression: Staghorn renal calculus Summary: Patient has malaise tachycardia and belly pain consistent with known staghorn calculi. Start sepsis work-up with cultures laboratory and then give antibiotics. Patient will be checked out to Dr. rendon at shift change. Further disposition work-up per him Disposition: Still a Patient Condition: Fair Referrals: Abe Britt ARNP [Primary Care Provider] -
[2018-11-25] MEDS ORDERED: ONDANSETRON 4 MG/2 ML VIAL ONE (07:43)
[2018-11-25] MEDS: HYDROmorphone 2 MG/ML VIAL IV PRN ×2 (07:50→08:42)
[2018-11-25] MEDS ORDERED: ONDANSETRON 4 MG/2 ML VIAL IV ONE (07:51)
[2018-11-25 08:13] LABS: Mean Corpuscular HGB Conc 32.8 g/dL (31.0-36.0); Platelet Count 245 K/mcL (140-440); RBC 4.96 M/mcL (4.50-5.90); Red Cell Distribution Width 14.9 % (11.5-14.5)
[2018-11-25] MEDS ORDERED: ACETAMINOPHEN 325 MG TABLET PO ONE (08:20)
[2018-11-25 08:37] LABS: ALT/SGPT 18 U/l (0-40); Albumin 3.9 gm/dL (3.2-5.2); Albumin/Globulin Ratio 1.1 (1.0-2.3); Alkaline Phosphatase 77 U/L (39-117); Blood Urea Nitrogen 17 mg/dl (6-20)
[2018-11-25 08:49] LABS: Band Neutrophils % 3 % (0-10); Lymphocytes % 13 % (15-49); Monocytes % (Manual) 8 % (1-12); Platelet Estimate NORMAL (NORMAL); RBC Morphology NORMAL (NORMAL); Segmented Neutrophils % 76 % (38-78)
[2018-11-25 09:22] LABS: Appearance,Urine CLEAR; Bacteria,Urine 0 /hpf (0); Bilirubin,Urine NEG (NEG); Color,Urine YELLOW; Glucose,Urine (UA) NEGATIVE (NEG); Leukocyte Esterase,Urine 25 /uL (NEG); Mucus,Urine FEW /hpf (0); Protein,Urine 30 mg/dL (NEG); Specific Gravity,Urine 1.019 (1.000-1.035); Urine Blood >=1.0 mg/dL (<0.03); Urine RBC 8 /hpf (0-1); Urine Squamous Epithelial Cell < 1 /hpf (0-4); Urine WBC 10 /hpf (0-4); Urobilinogen,Urine NEG (NEG)
--- NOTE | 2018-11-25 09:38 | Emergency Department Note ---
Abdominal Pain HPI - General Chief Complaint: Abdominal Pain Stated Complaint: lower abd pain Time Seen by Provider: 11/25/18 07:19 Source: patient Mode of arrival: ambulatory Limitations: no limitations - Related Data Home Medications Medication Instructions Recorded Confirmed Ibuprofen [Motrin Ib] 400 - 600 mg PO QIDP PRN 10/28/18 11/12/18 Previous Rx's Medication Instructions Recorded Lisinopril [Zestril] 10 mg PO DAILY #30 tab 10/30/18 allopurinol 100 mg tablet See Rx Instructions PO QDAY #90 tab 11/12/18 prednisone 10 mg tablet See Rx Instructions PO .COMPLEX 11/12/18 #90 tab Allergies Allergy/AdvReac Type Severity Reaction Status Date / Time morphine AdvReac Mild Agitated Verified 11/25/18 07:14 Abdominal Pain PMH - Past Medical History Medical history: Reports: kidney stones - Social History Smoking status: Never smoker Alcohol use: Reports: Heavy (Heavy in past but states he has not drank in the past 2 years) Drug use: Reports: unknown (Records indicate substance abuse in the past) Physical Exam Limitations: no limitations Course Vital Signs Temperature 98.2 F 11/25/18 07:12 Pulse Rate 137 H 11/25/18 07:12 Respiratory Rate 26 H 11/25/18 07:12 Blood Pressure 128/80 11/25/18 07:12 Pulse Oximetry (%) 96 11/25/18 07:12 Temperature 100.3 F H 11/25/18 09:17 Pulse Rate 108 H 11/25/18 09:00 Respiratory Rate 18 11/25/18 09:00 Blood Pressure 108/68 11/25/18 08:46 Pulse Oximetry (%) 95 11/25/18 09:00 Abdominal Pain - MDM Narrative Medical decision making narrative: This patient probably has a recurrent pyelonephritis with a staghorn calculus in place on the right. He will be admitted to the hospital by Dr. Negrete. - Lab Data Lab results reviewed: Yes I reviewed the patient's lab results. Result diagrams: 11/25/18 07:25 11/25/18 07:25 Lab Results 11/25/18 11/25/18 11/25/18 Range/Units 07:25 07:25 07:25 WBC 17.4 H (4.5-11.0) K/mcL RBC 4.96 (4.50-5.90) M/mcL Hgb 13.4 L (13.5-16.5) g/dL Hct 40.7 L (41.0-55.0) % MCV 82.0 (80.0-100.0) fL MCH 26.9 (26.0-34.0) pg MCHC 32.8 (31.0-36.0) g/dL RDW 14.9 H (11.5-14.5) % Plt Count 245 (140-440) K/mcL MPV 8.0 (7.4-10.4) fL Total Counted 100 Seg Neutrophils % 76 (38-78) % Band Neutrophils % 3 (0-10) % Lymphocytes % 13 L (15-49) % Monocytes % (Manual) 8 (1-12) % Platelet Estimate Normal (NORMAL) RBC Morphology Normal (NORMAL) VBG Lactic Acid 2.1 H (0.5-2.0) mmol/L Sodium 135 (133-145) mmol/L Potassium 4.0 (3.3-5.1) mmol/L Chloride 100 (96-108) mmol/L Carbon Dioxide 21 L (22-30) mmol/L Anion Gap 14.0 (8-16) BUN 17 (6-20) mg/dl Creatinine 0.9 (0.7-1.2) mg/dl GFR Calculation 102 Glucose 129 H (70-105) mg/dL Calcium 9.0 (8.6-10.4) mg/dl Total Bilirubin 0.5 (0.0-1.0) mg/dL AST 13 (0-37) U/l ALT 18 (0-40) U/l Alkaline Phosphatase 77 (39-117) U/L Total Protein 7.3 (5.9-8.4) gm/dL Albumin 3.9 (3.2-5.2) gm/dL Globulin 3.4 (2.2-3.7) gm/dL Albumin/Globulin Ratio 1.1 (1.0-2.3) Urine Color Urine Appearance Urine pH (5.0-9.0) Ur Specific [place] (1.000-1.035) Urine Protein (NEG) mg/dL Urine Glucose (UA) (NEG) mg/dL Urine Ketones (NEG) mg/dL Urine Occult Blood (<0.03) mg/dL Urine Nitrate (NEG) Urine Bilirubin (NEG) mg/dL Urine Urobilinogen (NEG) mg/dL Ur Leukocyte Esterase (NEG) /uL Urine RBC (0-1) /hpf Urine WBC (0-4) /hpf Ur Squamous Epith Cells (0-4) /hpf Urine Bacteria (0) /hpf Urine Mucus (0) /hpf Ur Culture Indicated? 11/25/18 Range/Units 08:47 WBC (4.5-11.0) K/mcL RBC (4.50-5.90) M/mcL Hgb (13.5-16.5) g/dL Hct (41.0-55.0) % MCV (80.0-100.0) fL MCH (26.0-34.0) pg MCHC (31.0-36.0) g/dL RDW (11.5-14.5) % Plt Count (140-440) K/mcL MPV (7.4-10.4) fL Total Counted Seg Neutrophils % (38-78) % Band Neutrophils % (0-10) % Lymphocytes % (15-49) % Monocytes % (Manual) (1-12) % Platelet Estimate (NORMAL) RBC Morphology (NORMAL) VBG Lactic Acid (0.5-2.0) mmol/L Sodium (133-145) mmol/L Potassium (3.3-5.1) mmol/L Chloride (96-108) mmol/L Carbon Dioxide (22-30) mmol/L Anion Gap (8-16) BUN (6-20) mg/dl Creatinine (0.7-1.2) mg/dl GFR Calculation Glucose (70-105) mg/dL Calcium (8.6-10.4) mg/dl Total Bilirubin (0.0-1.0) mg/dL AST (0-37) U/l ALT (0-40) U/l Alkaline Phosphatase (39-117) U/L Total Protein (5.9-8.4) gm/dL Albumin (3.2-5.2) gm/dL Globulin (2.2-3.7) gm/dL Albumin/Globulin Ratio (1.0-2.3) Urine Color Yellow Urine Appearance Clear Urine pH 5.0 (5.0-9.0) Ur Specific [place] 1.019 (1.000-1.035) Urine Protein 30 A (NEG) mg/dL Urine Glucose (UA) Negative (NEG) mg/dL Urine Ketones Neg (NEG) mg/dL Urine Occult Blood >=1.0 A (<0.03) mg/dL Urine Nitrate Neg (NEG) Urine Bilirubin Neg (NEG) mg/dL Urine Urobilinogen Neg (NEG) mg/dL Ur Leukocyte Esterase 25 A (NEG) /uL Urine RBC 8 H (0-1) /hpf Urine WBC 10 H (0-4) /hpf Ur Squamous Epith Cells < 1 (0-4) /hpf Urine Bacteria 0 (0) /hpf Urine Mucus Few (0) /hpf Ur Culture Indicated? Yes Disposition Pt seen by FINISHER OPERATOR/PA only: No Clinical Impression: Staghorn renal calculus, Sepsis due to urinary tract infection Disposition: Xfer As Inpt ([facility]) Condition: Good Referrals: Abe Britt ARNP [Primary Care Provider] - Time of Disposition: 09:37
[2018-11-25] MEDS ORDERED: ONDANSETRON 4 MG/2 ML VIAL IV PRN (10:31)
[2018-11-25] MEDS ORDERED: methylPREDNISolone SOD SUCC 40 MG/ML VIAL IV ONE (10:31)
[2018-11-25] MEDS ORDERED: HYDROmorphone 2 MG/ML VIAL IV PRN (10:31)
--- NOTE | 2018-11-25 11:14 | Internal Med History&Physical ---
Medical - H&P: [facility] Patient information: Note initiated : 11/25/18 at 11:10 am Service Date, if different from initiated Date: [] Patient: Fito Gunn 48 y/o M admitted on 11/25/18 for Lower Abd Pain. Chief Complaint: [] History of present illness: Mr. Gunn is a 48 year old M with history of inflammatory arthritis, on prednisone, renal stones staghorn calculus presents to the emergency room today for fever chills and abdominal pain that started this morning. The patient had right-sided flank pain yesterday which he had attributed as is common renal stone pain. This morning he woke up with fever chills not feeling well rigors and sweating and lower abdominal pain pain is in the hypogastric region burning in nature nonradiating no aggravating relieving factors. The patient was admitted in this hospital earlier this month I believe with the diagnosis of pyelonephritis and gram-negative bacteremia and sepsis. He had staghorn calculus was treated with antibiotics for 2 weeks. The patient was doing well after this and was supposed to follow-up with urology tomorrow his symptoms returned and therefore he presented to the emergency room. On presenting to the emergency room patient was febrile 100.7, tachycardic blood pressure was stable was a bit tachypneic saturating 96% on room air. Labs show leukocytosis WBC count of 17.4 hemoglobin 13.4, lactic acid 2.1 left lites are stable UA suggestive of a UTI Patient is being admitted to the hospital for further management CT scan of the abdomen has been ordered All systems: reviewed and no additional remarkable complaints except as stated (As per HPI rest negative) Medical - H&P: H Medical history: Medical History (Last Reviewed 11/12/18 @ 13:59 by Susan Britt RN) intermediate accountant current use of systemic steroids (Acute) Hyperuricemia (Acute) Encounter for long-term (current) use of high-risk medication (Acute) HLA B27 (HLA B27 positive) (Chronic) Spondyloarthropathy (Suspected) Inflammatory arthropathy (Acute) Right flank pain (Chronic) Left hip pain (Chronic) Hand pain (Chronic) Constipation (Chronic) Urinary hesitancy (Chronic) Intertrigo (Chronic) Erectile dysfunction (Chronic) Lumbago (Chronic) Elevated blood pressure reading (Chronic) Benign positional vertigo (Chronic) Polyarthralgia (Acute) Osteochondroma (Chronic) Calcaneal spur (Chronic) Tendinitis (Chronic) Right ankle sprain (Chronic) Proteinuria (Chronic) High risk medication use (Chronic) Gross hematuria (Chronic) Uric acid nephrolithiasis (Chronic) Elevated uric acid in blood (Chronic) Left hand fracture (Chronic) Knee fracture, left (Chronic) Exercise-induced asthma (Chronic) Eczema (Chronic) Diverticulitis of large intestine (Chronic) Urolithiasis (Chronic) Blood in urine (Chronic) Right lower quadrant pain (Chronic) Reactive arthritis (Chronic) Inflammatory polyarthropathy (Chronic) Arthralgia (Chronic) Hypertension (Chronic) Hyperlipidemia (Chronic) Vitamin D deficiency (Chronic) Anxiety (Chronic) Depression (Chronic) Asthma (Chronic) Substance use disorder (Chronic) Gout (Chronic) Diverticulitis (Chronic) Staghorn renal calculus (Chronic) Calculus of kidney (Acute) Surgical history: Past Surgical History (Last Reviewed 11/12/18 @ 13:59 by Susan Britt RN) History of cholecystectomy (Chronic ~2002) History of tonsillectomy and adenoidectomy (Chronic) Family history: reviewed and not pertinent Medical - H&P: Meds Home Medications Medication Instructions Recorded Confirmed Type Ibuprofen [Motrin Ib] 400 - 600 mg PO QIDP PRN 10/28/18 11/12/18 History Lisinopril [Zestril] 10 mg PO DAILY #30 tab 10/30/18 11/12/18 Rx allopurinol 100 mg tablet See Rx Instructions PO QDAY #90 tab 11/12/18 11/12/18 Rx prednisone 10 mg tablet See Rx Instructions PO .COMPLEX 11/12/18 11/12/18 Rx #90 tab Allergies Allergy/AdvReac Type Severity Reaction Status Date / Time morphine AdvReac Mild Agitated Verified 11/25/18 07:14 Medical - H&P: Exam - Constitutional Vitals: Temp Pulse Resp BP Pulse Ox 100.3 F H 111 H 28 H 103/71 96 11/25/18 10:31 11/25/18 10:31 11/25/18 10:31 11/25/18 10:31 11/25/18 10:31 Exam: GENERAL: The patient is a well-developed, well-nourished in no apparent distress. Is alert and oriented x3. Obese individual VITAL SIGNS: Reviewed and as noted elsewhere. HEENT: Head is normocephalic and atraumatic. Extraocular muscles are intact. Pup ils are equal, round, and reactive to light. Nares appeared normal. Mouth appears any without lesions. Mucous membranes are moist. NECK: Normal to inspection, Supple, No lymphadenopathy or thyromegaly. LUNGS: Air entry equal on both sides, no wheezing, crackles or rhonchi noted. No accessory muscles of respiration HEART: Regular rate and rhythm normal, S1 and S2 heard, no Gallop, S3 or Rub Not ed, No Gross murmur heard. ABDOMEN: Soft, nontender, and nondistended. Positive bowel sounds. No hepatosplenomegaly was noted. EXTREMITIES: No cyanosis, clubbing, rash, lesions or edema. NEUROLOGIC: Cranial nerves II through XII are grossly intact. Motor and Sensory System Grossly Intact PSYCHIATRIC: Normal affect, Normal Mood. Appropriate Behavior. SKIN: No ulceration or wounds noted, No jaundice, No rash noted. Medical - H&P: Reslt - Labs CBC & Chem 7: 11/25/18 07:25 11/25/18 07:25 Labs: Short CBC 11/25/18 Range/Units 07:25 WBC 17.4 H (4.5-11.0) K/mcL Hgb 13.4 L (13.5-16.5) g/dL Hct 40.7 L (41.0-55.0) % Plt Count 245 (140-440) K/mcL BMP 11/25/18 07:25 Sodium 135 Potassium 4.0 Chloride 100 Carbon Dioxide 21 L BUN 17 Creatinine 0.9 Glucose 129 H Calcium 9.0 Liver Function 11/25/18 Range/Units 07:25 Total Bilirubin 0.5 (0.0-1.0) mg/dL AST 13 (0-37) U/l ALT 18 (0-40) U/l Alkaline Phosphatase 77 (39-117) U/L Albumin 3.9 (3.2-5.2) gm/dL Urine 11/25/18 Range/Units 08:47 Urine Color Yellow Urine Appearance Clear Urine pH 5.0 (5.0-9.0) Ur Specific [place] 1.019 (1.000-1.035) Urine Protein 30 A (NEG) mg/dL Urine Glucose (UA) Negative (NEG) mg/dL Medical - H&P: A/P - Narrative A/P Narrative: A/P Sepsis Pyelonephritis Renal stone Obesity, BMI 39 Rheumatoid arthritis Lactic acidosis Plan Admit to med surg IV fluids IV Rocephin, await urine and blood culture results CT scan abdomen pelvis pending Review case with Urology DVT hep sq Full code Social History - Social History marital status: occupational status: unemployed - Exercise physical activity: none - Tobacco smoking status: Never smoker - Alcohol alcohol intake frequency: a few times a month - Substance use substance use type: marijuana, other
[2018-11-25] MEDS ORDERED: IOPAMIDOL 100 ML BOTTLE IV ONE (11:18)
--- NOTE | 2018-11-25 11:42 | Cat Scan Report ---
CLINICAL INFORMATION: History of pyelonephritis. Lower abdominal pain. COMPARISON: Previous CT scan dated 10/28/2018 TECHNIQUE: Axial images were obtained through the abdomen and pelvis. Sagittally and coronally reformatted images. 90 mL contrast material injected intravenously. Oral contrast material was given FINDINGS: Again demonstrated is a staghorn type stone in the right renal pelvis and inferior collecting system. This is unchanged. Previous examination demonstrated perinephric infiltration on the right. This has resolved. There is no perinephric fluid or mass. There is no hydronephrosis. There is no solid renal mass. There is sigmoid and distal descending colon diverticulosis. There is an area of perinephric infiltration consistent with simple diverticulitis at the descending colon - sigmoid colon junction. This is a new finding. There is no significant extraluminal gas. There is no diverticular abscess. Colon is otherwise negative. There is no evidence for appendicitis. There is no mechanical small bowel obstruction. There is no free intraperitoneal fluid. No pneumoperitoneum. No biliary or portal venous gas. No pulmonary parenchymal consolidation at either lung base. No pleural fluid. No pericardial fluid. Liver is negative. No focal intrahepatic abnormality. Liver contour is smooth. Patient has undergone previous cholecystectomy. Common bile duct is mildly dilated and measures approximately 7 mm. Pancreas is negative. No pancreatic mass. No peripancreatic abnormality. Spleen is negative. No splenomegaly. Normal enhancement of the portal and splenic veins. Negative adrenal glands. Lumbar spine is negative. No compression deformities. Sacrum and pelvis are negative. IMPRESSION: 1. Staghorn calculus in the right kidney, unchanged. Interval resolution of perinephric infiltration there is no renal or perinephric abscess. No solid mass. 2. Interval development of left lower quadrant diverticulitis. No significant free air. No diverticular abscess. The exam was performed using radiation dose optimization techniques including, but not limited to, automated exposure control, adjustment of the mA and/or kV according to patient size and use of iterative reconstruction technique. Interpreted and Authenticated by: Pedro Oropeza 11/25/18
[2018-11-25] MEDS: cefTRIAXone 2 GM in DEXTROSE 5% IN WATER 50 ML IV SCH (11:55)
[2018-11-25] MEDS: metroNIDAZOLE 500 MG/100 ML BAG IV SCH ×2 (12:27→21:46)
[2018-11-25] MEDS: LACTATED RINGERS 1,000 ML IV SCH ×2 (12:27→21:45)
[2018-11-25] MEDS: ACETAMINOPHEN 325 MG TABLET PO PRN (14:35)
[2018-11-25] MEDS: 0.9 % SODIUM CHLORIDE 10 ML SYRINGE IV SCH ×2 (14:37→21:49)
[2018-11-25] MEDS: oxyCODONE HCL 5 MG TABLET PO PRN ×2 (18:05→21:46)
[2018-11-25] MEDS: HEPARIN 5,000 UNIT/ML VIAL SQ SCH (21:02)
[2018-11-26] MEDS: LACTATED RINGERS 1,000 ML IV SCH ×2 (04:24→05:47)
[2018-11-26] MEDS: 0.9 % SODIUM CHLORIDE 10 ML SYRINGE IV SCH (04:25)
[2018-11-26] MEDS: metroNIDAZOLE 500 MG/100 ML BAG IV SCH (05:48)
[2018-11-26] MEDS ORDERED: PANTOPRAZOLE 40 MG TABLET PO SCH (07:30)
[2018-11-26 08:11] LABS: Basophils # (Auto) 0 K/mcL (0.0-0.3); Basophils % (Auto) 0 % (0.0-2.0); Eosinophils # (Auto) 0 K/mcL (0.0-0.7); Eosinophils % (Auto) 0.2 % (0.0-7.0); Granulocytes % (Auto) 78.9 % (38.0-78.0); Lymphocytes # (Auto) 1.6 K/mcL (1.5-4.8); Lymphocytes % (Auto) 13.2 % (15.5-49.0); Mean Corpuscular HGB Conc 32.6 g/dL (31.0-36.0); Monocytes % (Auto) 7.7 % (1.0-12.0); Platelet Count 217 K/mcL (140-440); RBC 4.57 M/mcL (4.50-5.90); Red Cell Distribution Width 15.5 % (11.5-14.5)
[2018-11-26 08:27] LABS: ALT/SGPT 58 U/l (0-40); Albumin 3.7 gm/dL (3.2-5.2); Albumin/Globulin Ratio 1.1 (1.0-2.3); Alkaline Phosphatase 71 U/L (39-117); Bilirubin,Direct < 0.2 mg/dL (0.0-0.3); Blood Urea Nitrogen 11 mg/dl (6-20); Gamma Glutamyl Transpeptidase 85 U/L (8-61); Uric Acid 4.8 mg/dL (2.5-8.0)
[2018-11-26] MEDS ORDERED: cefTRIAXone 2 GM VIAL ONE (08:41)
[2018-11-26] MEDS: ACETAMINOPHEN 325 MG TABLET PO PRN (08:45)
[2018-11-26] MEDS: cefTRIAXone 2 GM in DEXTROSE 5% IN WATER 50 ML IV SCH (08:48)
[2018-11-26] MEDS: HEPARIN 5,000 UNIT/ML VIAL SQ SCH (08:48)
--- NOTE | 2018-11-26 09:04 | Discharge Summary ---
Medical - DS: Prov Patient information: Note initiated : 11/26/18 at 9:01 am Service Date, if different from initiated Date: [] Patient: Fito Gunn 48 y/o M admitted on 11/25/18 for Lower Abd Pain. Chief Complaint: [] Date of admission: 11/25/18 10:25 Discharge date: 11/26/18 Primary care physician: TALIA Mcleod Consults: 11/25/18 10:42 Consult to Physician [CONS] Routine Comment: Consulting Provider: Dalia Negrete Reason For Exam: Physician to Consult Discharging clinician: Dalia Negrete Medical - DS: Meds - Discharge Medications Prescriptions: Levofloxacin 750 mg PO DAILY #5 tab metroNIDAZOLE [Flagyl] 500 mg PO TID #15 tab Active and Home Medications: Home Medications Ibuprofen [Motrin Ib] 400 - 600 mg PO QIDP PRN 10/28/18 [History Confirmed 11/25/18 Last Taken 10/28/18] Lisinopril [Zestril] 10 mg PO DAILY #30 tab 10/30/18 [Rx Confirmed 11/25/18 Last Taken 11/24/18] Allopurinol [Zyloprim] 300 mg PO QDAY 11/25/18 [History Confirmed 11/25/18 Last Taken 11/24/18] predniSONE [Prednisone] 20 mg PO DAILY 11/25/18 [History Confirmed 11/25/18 Last Taken 11/24/18] Medical - DS: Hosp Hospital course: Mr. Gunn is a 48 year old M with history of inflammatory arthritis, on prednisone, renal stones staghorn calculus presents to the emergency room today for fever chills and abdominal pain that started this morning. The patient had right-sided flank pain yesterday which he had attributed as is common renal stone pain. This morning he woke up with fever chills not feeling well rigors and sweating and lower abdominal pain pain is in the hypogastric region burning in nature nonradiating no aggravating relieving factors. The patient was admitted in this hospital earlier this month I believe with the diagnosis of pyelonephritis and gram-negative bacteremia and sepsis. He had staghorn calculus was treated with antibiotics for 2 weeks. The patient was doing well after this and was supposed to follow-up with urology tomorrow his symptoms returned and therefore he presented to the emergency room. On presenting to the emergency room patient was febrile 100.7, tachycardic blood pressure was stable was a bit tachypneic saturating 96% on room air. Labs show leukocytosis WBC count of 17.4 hemoglobin 13.4, lactic acid 2.1 left lites are stable UA suggestive of a UTI Patient is being admitted to the hospital for further management CT scan of the abdomen did however show acute diverticulitis. 11/26 Patient seen examined, clinically significantly improved,no pain, afebrile, blood culture negative at 24 hrs. WBC trending down, chemistry stable eager to be discharged, notes has had colonosocpy 2 yrs ago, also reports that had diveriticulitis in the past. Will discharge on po levofloxacin and flagyl. No other changes made to [facility] home medication list. Pt has moved his bowels. Discharge diagnosis: Diveticulitis - Time Spent with Patient Total time spent providing and/or coordinating discharge services: Greater than 30 minutes Medical - DS: Exam - Constitutional Vitals: Vital Signs Temp Pulse Pulse Resp BP BP Pulse Ox 11/26/18 07:54 97.9 F 86 18 127/86 96 11/26/18 03:11 97.9 F 86 20 121/69 97 11/25/18 23:15 98.6 F 90 20 118/72 96 11/25/18 18:37 98.4 F 90 24 H 113/74 96 11/25/18 15:47 98.2 F 88 18 110/69 95 11/25/18 10:31 100.3 F H 111 H 28 H 103/71 96 11/25/18 10:25 97.4 F 97 H 20 104/66 96 11/25/18 10:14 111 H 28 H 96 11/25/18 10:01 102 H 103/71 97 11/25/18 09:46 102 H 25 H 117/57 97 11/25/18 09:31 104 H 19 117/63 95 11/25/18 09:17 100.3 F H 11/25/18 09:16 106 H 19 104/63 95 11/25/18 09:05 100.3 F H Intake and Output 11/25/18 11/26/18 11/26/18 21:59 05:59 13:59 Intake Total 2000 1300 480 Output Total 400 1950 Balance 1600 -650 480 Intake: IV 1000 1100 Lactated Ringers 1,000 ml @ 125 1000 1000 mls/hr IV .Q8H RIA Rx#: [id number] Oral 1000 200 480 Output: Void Amount 400 1950 Other: Meal Dinner Breakfast Percent of Meal Consumed 100% 100% Feeding Ability Independent Urine Appearance Clear Urine Color Bright Yellow Urine Odor Normal Weight 306 lb Additional comments: Constitutional; Afebrile, cooperative, alert, not in distress. Eyes- No icterus, , No periorbital swelling Respiratory system: Air Entry equal on both sides, No crackles or wheezing, no rhonchi. CVS- Rate rhythm regular, S1,S2 heard, no gallop, no rub. Abdomen- Soft mild hypogastric tendernss no organomegaly, no tenderness, no guarding or rigidity, [employer]- AOOx3, moving all extremities, no gross focal deficit noted. Medical - DS: Data Labs on day of discharge: Labs from last 24 hours 11/26/18 11/26/18 11/25/18 07:30 07:30 08:47 WBC 12.3 H RBC 4.57 Hgb 12.2 L Hct 37.5 L MCV 82.0 MCH 26.7 MCHC 32.6 RDW 15.5 H Plt Count 217 MPV 7.7 Gran % 78.9 H Lymph % (Auto) 13.2 L [place] % (Auto) 7.7 Eos % (Auto) 0.2 Baso % (Auto) 0 Gran # 9.7 H Lymph # (Auto) 1.6 [place] # (Auto) 1.0 H Eos # (Auto) 0 Baso # (Auto) 0 Sodium 143 Potassium 4.1 Chloride 106 Carbon Dioxide 26 Anion Gap 11.0 BUN 11 Creatinine 0.7 GFR Calculation 113 Glucose 105 Uric Acid 4.8 Calcium 8.7 Phosphorus 3.6 Magnesium 1.9 Total Bilirubin 0.5 Direct Bilirubin < 0.2 GGT 85 H AST 27 ALT 58 H Alkaline Phosphatase 71 Lactate Dehydrogenase 130 Total Protein 7.0 Albumin 3.7 Globulin 3.3 Albumin/Globulin Ratio 1.1 Triglycerides 97 Urine Color Yellow Urine Appearance Clear Urine pH 5.0 Ur Specific [place] 1.019 Urine Protein 30 A Urine Glucose (UA) Negative Urine Ketones Neg Urine Occult Blood >=1.0 A Urine Nitrate Neg Urine Bilirubin Neg Urine Urobilinogen Neg Ur Leukocyte Esterase 25 A Urine RBC 8 H Urine WBC 10 H Ur Squamous Epith Cells < 1 Urine Bacteria 0 Urine Mucus Few Ur Culture Indicated? Yes Preliminary micro results at discharge 11/25/18 07:30 Blood Culture - Preliminary Blood 11/25/18 07:25 Blood Culture - Preliminary Blood Medical - DS: A/P - Patient/Caregiver Discharge Instructions Activity: increase activity as tolerated Diet: Low Fiber, High Fiber Additional Instructions: Consume low residue diet for 1 - 2 week, then you will need to consume a diet rich in fiber to avoid further episodes. Go to the ER if worsening symptoms. FOllow up with PCP in 1 week Follow up with MARIBEL celaya in 6-8 weeks Take antibiotics for another 5 days, No changes made to your chronic home medications - Follow up Plan Follow up with: Abe Britt ARNP [Primary Care Provider] - April Montalvo ARNP [Nurse Practitioner] - Disposition: Home, Self-Care Prognosis: Good Rehab Potential: Good I certify that the patient requires SNF services: No Overall status at discharge: patient is progressing back to baseline Medical - DS: Qual - VTE Deep Vein Thrombosis/Pulmonary Embolism Present on Admission: No
== END 2018-11-26 10:15 | disposition home or self-care (01) | DRG 392 ==
LOC: ED 07:12 → MEDSUR 10:25
PROVIDERS: ADMIT Internal Medicine; ATTEND Internal Medicine